=== PATIENT | female | born 1980 | race Caucasian/White ===

== ENCOUNTER 2018-01-18 20:12 | Emergency (ER) | payer OTHER ==
[~2018-01-18] VITALS: Ht 167.6 cm; Wt 82.6 kg
[2018-01-18 20:17] VITALS: Ht 167.6 cm; Wt 82.6 kg
[2018-01-18 21:23] LABS: BASOPHIL % 0.5 % (0-2); PLATELET COUNT 193 x10^3mcL (130-400); RED CELL DISTRIBUTION WIDTH 13.7 % (11.5-14.5)
[2018-01-18 21:34] LABS: CALCIUM 8.5 mg/dL (8.5-10.1); CARBON DIOXIDE 24.3 mmol/L (21-32); CHLORIDE SERUM 107 mmol/L (98-107); CREATININE SERUM 0.8 mg/dL (0.6-1.0); GFR1 > 60 mL/min; GLUCOSE SERUM 101 mg/dL (74-106); POTASSIUM SERUM 3.7 mmol/L (3.5-5.1); SODIUM SERUM 141 mmol/L (136-145)
[2018-01-18 21:40] LABS: ALBUMIN 3.5 g/dL (3.4-5.0); ALKALINE PHOSPHATASE 71 U/L (46-116); ALT/SGPT 30 U/L (14-59); AST/SGOT 15 U/L (15-37); BILIRUBIN TOTAL 0.34 mg/dL (0.20-1.00); TOTAL PROTEIN, SERUM 7.3 g/dL (6.4-8.2)
[2018-01-18 22:11] VITALS: BP 122/84
== END 2018-01-18 22:11 | disposition home or self-care (01) ==
LOC: ED 20:12
PROVIDERS: Emergency Medicine
DX: F41.1 Generalized anxiety disorder (principal); Z88.0 Allergy status to penicillin; Z88.2 Allergy status to sulfonamides; Z88.1 Allergy status to other antibiotic agents
CPT/HCPCS: 36415; 82962; Q0162

== ENCOUNTER 2018-01-28 20:17 | Emergency (ER) | payer OTHER ==
[~2018-01-28] VITALS: Ht 167.6 cm; Wt 84.4 kg
[2018-01-28 20:25] VITALS: BP 127/80; Ht 167.6 cm; Wt 84.4 kg
== END 2018-01-28 23:32 | disposition home or self-care (01) ==
LOC: ED 20:17
DX: S90.222A Contusion of left lesser toe(s) with damage to nail, initial encounter (principal); Z88.0 Allergy status to penicillin; Z88.2 Allergy status to sulfonamides; Z88.1 Allergy status to other antibiotic agents; X58.XXXA Exposure to other specified factors, initial encounter; Y93.89 Activity, other specified; Y92.89 Other specified places as the place of occurrence of the external cause; Y99.8 Other external cause status
CPT/HCPCS: Q0092

== ENCOUNTER 2018-02-23 00:16 | Emergency (ER) | payer OTHER ==
[~2018-02-23] VITALS: Ht 167.6 cm; Wt 80.7 kg
[2018-02-23 00:21] VITALS: Ht 167.6 cm; Wt 80.7 kg
[2018-02-23 01:55] VITALS: BP 115/75
== END 2018-02-23 02:08 | disposition home or self-care (01) ==
LOC: ED 00:16
DX: G43.909 Migraine, unspecified, not intractable, without status migrainosus (principal); Z88.0 Allergy status to penicillin; Z88.2 Allergy status to sulfonamides; Z88.8 Allergy status to other drugs, medicaments and biological substances
CPT/HCPCS: J1885; J2765; J7030; Q0163

== ENCOUNTER 2018-10-22 22:07 | Emergency (ER) | payer OTHER ==
[~2018-10-22] VITALS: Ht 167.6 cm; Wt 83.0 kg
[2018-10-23 00:08] VITALS: BP 130/54
== END 2018-10-23 00:08 | disposition home or self-care (01) ==
LOC: ED 22:07
DX: M75.101 Unspecified rotator cuff tear or rupture of right shoulder, not specified as traumatic (principal)
CPT/HCPCS: 20552; J1885; J2001; J2920

== ENCOUNTER 2019-05-10 13:02 | Emergency (ER) | payer SELFPAY ==
[~2019-05-10] VITALS: Ht 167.6 cm; Wt 78.9 kg
[2019-05-10 13:48] VITALS: Ht 167.6 cm; Wt 78.9 kg
[2019-05-10 14:45] LABS: BASOPHIL % 0.4 % (0-2); PLATELET COUNT 203 x10^3mcL (130-400); RED CELL DISTRIBUTION WIDTH 13.4 % (11.5-14.5)
[2019-05-10 15:01] LABS: CALCIUM 8.3 mg/dL (8.5-10.1); CARBON DIOXIDE 25.7 mmol/L (21-32); CHLORIDE SERUM 104 mmol/L (98-107); CREATININE SERUM 0.8 mg/dL (0.6-1.0); GFR1 > 60 mL/min; GLUCOSE SERUM 83 mg/dL (74-106); POTASSIUM SERUM 3.7 mmol/L (3.5-5.1); SODIUM SERUM 140 mmol/L (136-145)
[2019-05-10 15:35] LABS: microscopic required? NO
[2019-05-10 15:45] LABS: UA SPECIFIC GRAVITY 1.015 (1.005-1.035); urine erythrocyte NEGATIVE (NEGATIVE)
[2019-05-10 16:02] VITALS: BP 121/75
== END 2019-05-10 16:02 | disposition home or self-care (01) ==
LOC: ED 13:02
PROVIDERS: Emergency Medicine
DX: N39.0 Urinary tract infection, site not specified (principal); G43.909 Migraine, unspecified, not intractable, without status migrainosus; Z90.89 Acquired absence of other organs; Z88.0 Allergy status to penicillin; Z88.2 Allergy status to sulfonamides; Z88.1 Allergy status to other antibiotic agents; Z88.8 Allergy status to other drugs, medicaments and biological substances
CPT/HCPCS: 87491; 87591; J1885; J1956; J7030

== ENCOUNTER 2019-05-11 07:18 | Emergency (ER) | payer SELFPAY ==
[~2019-05-11] VITALS: Ht 167.6 cm; Wt 69.9 kg
[2019-05-11 10:27] VITALS: BP 116/71
== END 2019-05-11 10:27 | disposition home or self-care (01) ==
LOC: ED 07:18
DX: B34.9 Viral infection, unspecified (principal); G43.909 Migraine, unspecified, not intractable, without status migrainosus; Z90.89 Acquired absence of other organs; Z88.0 Allergy status to penicillin; Z88.2 Allergy status to sulfonamides; Z88.1 Allergy status to other antibiotic agents; Z88.8 Allergy status to other drugs, medicaments and biological substances
CPT/HCPCS: 87804

== ENCOUNTER 2019-10-25 22:26 | Emergency (ER) | payer SELFPAY ==
[~2019-10-25] VITALS: Ht 167.6 cm; Wt 83.5 kg
[2019-10-25 23:03] VITALS: Ht 167.6 cm; Wt 83.5 kg
[2019-10-26 00:03] LABS: BASOPHIL % 0.5 % (0-2); PLATELET COUNT 232 x10^3mcL (130-400); RED CELL DISTRIBUTION WIDTH 14.3 % (11.5-14.5)
[2019-10-26 00:13] LABS: CARBON DIOXIDE 23.9 mmol/L (21-32); CHLORIDE SERUM 105 mmol/L (98-107); CREATININE SERUM 0.7 mg/dL (0.6-1.0); GFR1 > 60 mL/min; GLUCOSE SERUM 92 mg/dL (74-106); POTASSIUM SERUM 3.6 mmol/L (3.5-5.1); SODIUM SERUM 139 mmol/L (136-145)
[2019-10-26 00:17] LABS: ALBUMIN 3.5 g/dL (3.4-5.0); ALKALINE PHOSPHATASE 75 U/L (46-116); ALT/SGPT 23 U/L (14-59); AST/SGOT 18 U/L (15-37); BILIRUBIN TOTAL 0.3 mg/dL (0.20-1.00); TOTAL PROTEIN, SERUM 7.3 g/dL (6.4-8.2)
[2019-10-26 01:34] VITALS: BP 110/59
== END 2019-10-26 01:34 | disposition home or self-care (01) ==
LOC: ED 22:26
PROVIDERS: Emergency Medicine
DX: U07.1 COVID-19 (principal); J02.9 Acute pharyngitis, unspecified; G43.909 Migraine, unspecified, not intractable, without status migrainosus; Z88.2 Allergy status to sulfonamides; Z88.1 Allergy status to other antibiotic agents; Z88.0 Allergy status to penicillin
CPT/HCPCS: 36415; J1885; Q0092; U0003-CS

== ENCOUNTER 2019-10-31 14:30 | Emergency (ER) | payer SELFPAY ==
[~2019-10-31] VITALS: Ht 167.6 cm; Wt 81.6 kg
[2019-10-31 14:57] VITALS: Ht 167.6 cm; Wt 81.6 kg
[2019-10-31 15:02] VITALS: BP 126/81
== END 2019-10-31 15:38 | disposition home or self-care (01) ==
LOC: ED 14:30
DX: L91.8 Other hypertrophic disorders of the skin (principal); G43.909 Migraine, unspecified, not intractable, without status migrainosus; Z88.0 Allergy status to penicillin; Z88.2 Allergy status to sulfonamides; Z88.1 Allergy status to other antibiotic agents

== ENCOUNTER 2019-11-09 10:46 | Emergency (ER) | payer SELFPAY ==
[~2019-11-09] VITALS: Ht 167.6 cm; Wt 81.6 kg
[2019-11-09 13:10] VITALS: Ht 167.6 cm; Wt 81.6 kg
[2019-11-09 13:37] VITALS: BP 124/86
== END 2019-11-09 13:39 | disposition home or self-care (01) ==
LOC: ED 10:46
DX: Z03.818 Encounter for observation for suspected exposure to other biological agents ruled out (principal); G43.909 Migraine, unspecified, not intractable, without status migrainosus; Z88.0 Allergy status to penicillin; Z88.2 Allergy status to sulfonamides; Z88.1 Allergy status to other antibiotic agents